=== PATIENT | male | born 1935 | race Caucasian/White ===

== ENCOUNTER → 2019-05-18 | Outpatient (CLI) | payer OTHER ==
--- NOTE | 2019-05-18 15:13 | MR ---
EXAMINATION TYPE: MR shoulder RT wo con DATE OF EXAM: 05/18/2019 COMPARISON: None HISTORY: Pain in right shoulder TECHNIQUE: Multiplanar, multisequence imaging of the right shoulder is performed without contrast. Jerrod roman had excessive pain could only complete 4 sequences including localization. Exam is limited. FINDINGS: Rotator Cuff: There is complete rotator cuff tear with retraction of the supraspinatus to under the m id acromion. There is some mild elevation of the humeral head in relation to the glenoid. Acromioclavicular Joint: Mild hypertrophy is present. Glenohumeral Joint: Humerus articulates with the glenoid. There is slight superior subluxation. Labrum: The labrum appears grossly intact given limitation of non-arthrogram study. Biceps Tendon: The long head of biceps is in normal location within bicipital groove. Fluid surrounds the long head of the biceps tendon compatible moderate tendinosis. Bone marrow signal: No focal abnormal marrow signal is appreciated. Other: Moderate joint effusion is present. IMPRESSION: 1. Complete tear right supraspinatus tendon with retraction of the tendons of the mid acromion. Moder ate joint effusion is evident. No muscle atrophy is evident. 2. Moderate tendinosis long head biceps tendon.
== END | disposition home or self-care (01) ==
LOC: RADMRIMAIN 12:49
PROVIDERS: ATTEND Orthopaedic Surgery
DX: M75.121 Complete rotator cuff tear or rupture of right shoulder, not specified as traumatic (principal); M67.813 Other specified disorders of tendon, right shoulder; M25.411 Effusion, right shoulder

== ENCOUNTER 2019-06-28 05:38 | Day surgery (SDC) | payer OTHER ==
[2019-06-26 11:03] VITALS: BMI 35.9
--- NOTE | 2019-06-27 14:59 | HP ---
HISTORY AND PHYSICAL DATE OF SERVICE: 06/28/2019 Trevon Blum is an 84-year-old patient seen with progressive right shoulder pain. We discussed options. He elected to proceed with arthroscopy. Consent was obtained. Medical clearance was provided. PAST MEDICAL HISTORY: Noncontributory. PAST SURGICAL HISTORY: Carpal tunnel surgery, right total knee arthroplasty. DAILY MEDICATIONS: Vitamins. ALLERGIES: None. SOCIAL HISTORY: Denies tobacco use. PHYSICAL EVALUATION RIGHT SHOULDER: Flexion 130 degrees, abduction is 90 degrees, external rotation is 50 degrees with weakness, tenderness along the anterolateral acromion rotator cuff insertion site. Impingement positive at 90. Drop-arm sign is positive. Distal neurovascular exam is intact. RADIOGRAPHS OF THE RIGHT SHOULDER: Reveal type 2 anterior acromion, acromioclavicular joint osteoarthritis. Right shoulder MRI revealed retracted rotator cuff tendon tear. IMPRESSION: Right shoulder impingement with rotator cuff tear. PLAN: Right shoulder arthroscopy with subacromial decompression, probable arthroscopic rotator cuff repair, possible Cecilia procedure and debridement. MMODL / IJN: [id number] /
[2019-06-28] MEDS ORDERED: ONDANSETRON 4 MG/2 ML VIAL IVP ONE (05:55)
[2019-06-28] MEDS ORDERED: LACTATED RINGERS 1,000 ML IV SCH (05:55)
[2019-06-28] MEDS ORDERED: HYDROmorphone 0.5 MG/0.5 ML SYRINGE IVP PRN (05:55)
[2019-06-28] MEDS ORDERED: LIDOCAINE 1% 20 ML VIAL (10MG/ML) FOR IV START INTRADERMA PRN (05:55)
[2019-06-28] MEDS ORDERED: MIDAZOLAM (PF) 2 MG/2 ML VIAL IV ONE (06:40)
[2019-06-28] MEDS ORDERED: fentaNYL (PF) 50 MCG/ML 2 ML AMP IV ONE (06:40)
[2019-06-28] MEDS ORDERED: PROPOFOL 10 MG/ML 20 ML VIAL IV ONE (06:52)
[2019-06-28] MEDS ORDERED: MIDAZOLAM 2 MG/2 ML VIAL ONE (06:52)
[2019-06-28] MEDS ORDERED: PHENYLEPHRINE-0.9% NACL SYG 1 MG/10 ML SYRINGE ONE (06:52)
[2019-06-28] MEDS ORDERED: LIDOCAINE 1% INJ 10MG/ML (20 ML MDV) ONE (06:52)
[2019-06-28] MEDS ORDERED: SUCCINYLCHOLINE CHLORIDE 100 MG/5 ML SYR IV ONE (06:52)
[2019-06-28] MEDS ORDERED: ROPIVACAINE 5 MG/ML 30 ML VIAL ONE (06:52)
[2019-06-28] MEDS ORDERED: fentaNYL (PF) 50 MCG/ML 2 ML AMP ONE (06:52)
[2019-06-28] MEDS ORDERED: LACTATED RINGERS 1,000 ML IV ONE (08:42)
--- NOTE | 2019-06-28 08:52 | P.ANPRN ---
Procedure Note - Anesthesia - Nerve Block Performed Right Interscalene Single Time Out Performed: Yes Date of Procedure: 06/28/19 Procedure Start Time: 06:37 Procedure Stop Time: 06:46 Location of Patient Procedure: PreOp Indication: Acute Post-Operative Pain Specifically requested for management of pain by DrAlexander: Talon Morgan Sedation Type: Sedate with meaningful contact maintained Preparation: Sterile Prep Position: Supine Catheter: None Needle Types: Pajunk Needle Gauge: 21 Ultrasound used to visualize needle placement: Yes Ultrasound used to observe medication spread: Yes Injectate: 0.5% Ropivacaine (see comment for volume) (20 cc) Blood Aspirated: No Pain Paresthesia on Injection Noted: No Resistance on Injection: Normal Image Stored and Saved: Yes Events: Uneventful and Well Tolerated
[2019-06-28 09:26] VITALS: TEMP 97.5
--- NOTE | 2019-06-28 09:30 | P.OP ---
Date of Procedure: 06/28/19 Preoperative Diagnosis: Right shoulder impingement Postoperative Diagnosis: 1. Right shoulder massive retracted rotator cuff tear 2. Right shoulder impingement 3. Right shoulder acromioclavicular joint osteoarthritis 4. Right shoulder partial long head biceps tendon tear 5. Right shoulder superficial labral tear Procedure(s) Performed: 1. Right shoulder arthroscopic rotator cuff repair 2. Right shoulder arthroscopic subacromial decompression 3. Right shoulder arthroscopic Cecilia procedure 4. Right shoulder arthroscopic biceps tenotomy 5. Right shoulder arthroscopic debridement labral tear Implants: 5Arthrex swivel lock anchors Anesthesia: GETA, regional (Interscalene block) Surgeon: Talon Morgan Upscale Security Officer #1: Brando Rgigs Estimated Blood Loss (ml): 10 Pathology: none sent Condition: stable Disposition: PACU Indications for Procedure: 84-year-old patient seen with right shoulder pain. We discussed options, he elected to proceed with arthroscopy. Operative Findings: See description of procedure Description of Procedure: Patient underwent an interscalene block by department of anesthesia for postoperative pain management. The patient was then taken to the operative suite. The patient underwent a general anesthetic by the department of anesthesia. The patient was placed into a lateral position and secured. There was appropriate padding of the bony prominence. Right shoulder was then prepped and draped in normal sterile orthopedic fashion. We placed the extremity in 10 pounds of longitudinal traction. A posterior incision was now made for a posterior working portal site. The trocar and cannula were inserted into the glenohumeral joint. Arthroscopy was initiated. Spinal needle was now inserted anteriorly, to ascertain the anterior working portal site. An incision was now made in that area, a trocar was inserted followed by a probe. There was superficial tearing of the superior labrum. There was significant partial tearing long head biceps tendon. There was a well-visualized massive rotator cuff tear. I performed an arthroscopic biceps tenotomy. I debrided that superficial labral tear down to stable labral tissue. The residual labrum was found to be stable. Instruments removed from glenohumeral joint. Utilizing the posterior working portal site, the trocar and cannula were inserted into the subacromial space. Arthroscopy initiated. I made an incision 2 fingerbreadths lateral to the acromion. I introduced my trocar followed by my ArthroCare ablator. I now began ablating thick subacromial bursal tissue, which exposed the undersurface of the anterior acromion. There was diminished subacromial space. There was a very prominent anterior acromion. A motorized bur was introduced and a subacromial decompression was performed. I also excised some osteophytes off the inferior aspect of the distal clavicle. The AC joint was visualized and noted to be fairly arthritic. The motorized bur was introduced in the anterior portal site and a Cecilia procedure was performed without difficulty, decompressing the AC joint nicely. I turned my attention to the rotator cuff. There was a massive retracted rotator cuff tear. There was intrasubstance component to this as well. I cannot pull the tendon over the footprint. I performed a significant release. I now repaired the intrasubstance tear with 5 sutures performing a [id number] repair. I now just could barely get the tendon over the footprint. I abraded the footprint with a motorized bur.. I debrided the margins getting down to stable tendon tissue. I introduced my motorized bur and abraded the footprint area, getting some petechial bleeding. I now made an accessory portal site off the lateral aspect of the acromion. I punched 2 holes medial for medial row fixation with the assistance of Andrez FRANCIS carefully tapping the punch with a mallet as I held the punch and the camera. I now introduced both anchors into the pre-punched holes and Andrez FRANCIS tapped them with the mallet as I held anchors and the camera. Andrez FRANCIS now screwed the anchors in place a while I held the anchor guide and camera. All 8 limbs of suture were now passed through good bites of rotator cuff tendon. I passed and everted mattress suture centrally. I brought the central tendon down to the footprint repair. It was one single swivel lock anchor. I now punched 2 holes for lateral row fixation again I held the punch and camera while Andrez FRANCIS used a mallet to tap in the punch. We now passed sutures through both anchors and individually I introduced the anchors into the pre-punch holes I held the anchor guide in position with one hand holding the camera with the other hand while Andrez FRANCIS tensioned the sutures and screwed in the anchors one at a time. All residual suture limbs were now clipped. We had good compression of the tendon along the entire footprint. Instruments now removed from the portal sites. All portal sites were approximated with nylon suture. Sterile dressings were applied followed by a shoulder immobilizer. Andrez FRANCIS assisted in this complex case. The patient was awakened, transferred to a bed, and taken to recovery in stable condition.
[2019-06-28 09:48] VITALS: RESP 18
[2019-06-28 11:52] VITALS: BP 123/71; PULSE 76
== END 2019-06-28 12:25 | disposition home or self-care (01) ==
LOC: OR 05:38
PROVIDERS: ATTEND Orthopaedic Surgery
DX: M75.101 Unspecified rotator cuff tear or rupture of right shoulder, not specified as traumatic (principal); M75.41 Impingement syndrome of right shoulder; M19.011 Primary osteoarthritis, right shoulder; S46.111A Strain of muscle, fascia and tendon of long head of biceps, right arm, initial encounter; S43.431A Superior glenoid labrum lesion of right shoulder, initial encounter; X58.XXXA Exposure to other specified factors, initial encounter; M25.711 Osteophyte, right shoulder; Z96.651 Presence of right artificial knee joint; K21.9 Gastro-esophageal reflux disease without esophagitis; Z97.2 Presence of dental prosthetic device (complete) (partial); Z79.1 Long term (current) use of non-steroidal anti-inflammatories (NSAID); Z79.899 Other long term (current) drug therapy
CPT/HCPCS: 64415; 76942; 29826; 29827; 29824; C1713 ×3; C1765; J2250 ×2; J0690; J2405; J2001; J3010; J2795; J2370; J0330; J2704

== ENCOUNTER → 2023-03-16 | Outpatient (CLI) | payer MEDICARE, OTHER ==
[2023-03-16 12:10] VITALS: BP 131/70; PULSE 67; RESP 18
--- NOTE | 2023-03-16 13:31 | P.PAINPG ---
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 Pt states pain level is provoked at 10 /10 in intensity, constant, localized in the L lower lumbar spine, sharp in character w shooting pain towards the L groin. Pain is provoked by over activity, or standing from a sitting position. Pain is alleviated by PT w massage x 1 1/2 wks which he is currently in, massage therapist weekly for 2-3 yrs, heat, ice, medications (Tyl Arthritis), use of a cane for ambulatory assistance, reclining, repositioning and rest. PMH: OA, HTN PSH: R RCT Repair (2019), BL Carpal Tunnel Release, BL Total Knee Replacement SH: Never smoker, Occasional ETOH use, No illicit drug use FH: Mo- . Fa- . All: See list Meds: See list REVIEW OF ORGAN SYSTEMS: CONSTITUTIONAL: No fevers or chills. No recent weight loss. NEUROLOGICAL: + numbness and tingling along the distal extremities. No seizure disorders or headaches. MUSCULOSKELETAL: + pain PSYCHIATRIC: Denies current depression or suicidal thoughts. Physical Examinations : Constitutional : Cooperative , not in acute distress . Neurologic : Cranial nerve II to XII intact. No focal neurological deficits. Psychiatric : alert & oriented x 3. Matching mood & appropriate affect. Judgment & insight intact. Musculoskeletal : Cervical Spine Motor strength in the deltoid and biceps: Normal right side. Normal Left side Motor strength biceps and the wrist extensors: Normal right side . Normal left side Motor strength in the triceps muscle: Normal right side. Normal left side Deep tendon reflexes: Normal at the biceps. Normal at Brachioradialis. Normal at triceps Vertebral body tenderness to deep palpation over Cervical facet loading test: positive bilaterally Spurling test: positive bilaterally Neck distraction test: positive bilaterally Twyla sign: positive bilaterally Lumbar spine Motor strength lower extremities ,thigh and legs 5/5 Right side , 5/5 Left side Deep tendon reflexes : Normal Knee Jerk. Normal Ankle Jerk Vertebral body tenderness over Hanna Test positive Lumbar facet Loading Test: positive Right / positive Left Range of motion of the lumbar spine Flexion 30 degrees, extension 10 degrees Straight Leg Raise test: Left/ Right positive at degree Purvi test: positive right / positive left. Severe tenderness over the Sacroiliac joint on the Right / Left sides Gaenslen test: positive bilaterally Seated flexion test: positive bilaterally. Sacral spine : Severe tenderness over the Sacroiliac joint: right side / left side Range of motion: Flexion of the lumbar spine <60 degrees Range of motion: Extension of the lumbar spine <20 degrees Gaenslen's Test positive on L Purvi test: positive right side / left side Thigh Thrust Test positive on L Sacral Thrust Test Imaging: MRI non contrast of the lumbar spine from 03/07/23 reviewed Assessment/ Plan : Lumbar spondylosis Recommendation of L SI injection. May need a series of injections for optimal pain relief. Risks, benefits of procedure discussed and patient verbalized understanding. Admits to aspirin or anti- coagulant use or medical history of diabetes. Protocol for discontinuation/ continuation of medications zhao procedure discussed. Minimal anesthesia provided, if clinically indicated, consisting of Versed and Fentanyl. All questions answered. I have spent greater than 30 minutes on patient care today. Dr Araiza was available by phone for the evaluation of this patient. The time was used to review the medical records including relevant urine studies and Prescription history (MAPs), review of the available imaging, evaluation and examination of the patient, coordination of care with the medical staff and if applicable referring physicians, as well as creation of the medical record PQRS Narrative: Smoking Status Never smoker Home Medications: Ambulatory Orders Naproxen Sodium [Aleve] 220 mg PO BID PRN 06/26/19 Omeprazole [PriLOSEC] 20 mg PO [id number]-[id number] PRN 06/26/19 Hydrocodone/Acetaminophen [[place] 5-325] 1 each PO Q6HR PRN #28 tab 06/28/19 Controlled Substance Measures - Controlled Substance Measures Is patient prescribed a controlled substance at discharge?: No
== END ==
LOC: PNWHC3 10:38
PROVIDERS: ATTEND Specialist
DX: M51.36 Other intervertebral disc degeneration, lumbar region (principal); M47.816 Spondylosis without myelopathy or radiculopathy, lumbar region; M19.90 Unspecified osteoarthritis, unspecified site; I10 Essential (primary) hypertension
CPT/HCPCS: 99211

== ENCOUNTER 2023-03-31 12:13 | Day surgery (SDC) | payer MEDICARE, OTHER ==
[2023-03-24 14:26] VITALS: BMI 35.2
[~2023-03-31 12:13] MED LIST: LACTATED RINGERS 1,000 ML IV SCH
[2023-03-31 12:52] VITALS: TEMP 97.8
[2023-03-31] MEDS ORDERED: IOPAMIDOL M200 10 ML VIAL ONE (13:36)
[2023-03-31] MEDS ORDERED: TRIAMCINOLONE ACETONIDE 40 MG/ML 1 ML VIAL ONE (13:36)
--- NOTE | 2023-03-31 13:45 | P.PCN ---
Date of Procedure: 03/31/23 Description of Procedure: PREOPERATIVE DIAGNOSIS: Sacroiliac joint dysfunction POSTOPERATIVE DIAGNOSIS: Sacroiliac joint dysfunction. PROCEDURES: 1. Left-sided Sacroiliac joint steroid injection #1 out of 2 2. Sacroiliac joint arthrogram. SURGEON: Talisha Dong ANESTHESIA: Local and IV sedation : None EBL: None. Specimen removed: None Fluoroscopic image: saved to electronic medical records. PROCEDURE INDICATIONS: This patient with a history of chronic low back pain, and sacroiliac joint dysfunction. Patient tried conservative therapy. Came here for intervention management. PROCEDURE DESCRIPTION: The patient was seen and identified in the preoperative area. Risks, benefits, complications, and alternatives were discussed with the patient. The patient agreed to proceed with the procedure and signed the consent. and vital signs were stable. Patient was taken to the OR and time out was completed. The patient was placed in the prone position on procedure table and a pillow was placed under the abdomen to reduce lumbar lordosis. The lumbosacral area was prepped and draped in the usual sterile fashion. Critical pause was taken. Vital signs were closely monitored during the procedure. For the left side, the fluoroscopic camera was placed in right oblique view and left side SI joint lower pole was identified. Skin entry point was infiltrated with 1% lidocaine and 22-gauge 3.5 inch spinal needle was introduced into the inferior one-third of SI joint and after penetrating into the joint arthrogram was done. 0.5 ml of Isovue 200 contrast was injected after negative aspiration for blood, and air and negative for paresthesia. Good spread of the contrast into the SI joint has been seen. Then again after negative aspiration of spinal fluid and blood and negative for neurological symptoms, 3 mL of a solution containing total 2 mL of 1% preservative-free lidocaine mixed with 40 mg of Kenalog was injected. Needle was withdrawn intact. Skin was cleansed, and bandages were applied. COMPLICATIONS: None. DISPOSITION / PLANS: The patient was placed in a supine position and transferred to the recovery area in a stable condition for observation and was discharged from the recovery room after meeting discharge criteria. Home discharge instructions given to the patient by the staff. The patient was reexamined prior to discharge. The patient will schedule for follow-up visit with the pain clinic in 4 weeks duration.
[2023-03-31 13:51] VITALS: PULSE 78; RESP 18
--- NOTE | 2023-03-31 13:54 | FL ---
EXAMINATION TYPE: FL guided pain mgmt statistic DATE OF EXAM: 03/31/2023 HISTORY: Fluoroscopy time Total dose area product (DAP) in uGy*m?, mGy*cm? (or similar): 0.08460 IMPRESSION: 1. Fluoroscopy time.
[2023-03-31 14:10] VITALS: BP 134/67
== END 2023-03-31 14:25 | disposition home or self-care (01) ==
LOC: ORPAIN 12:13
DX: M53.3 Sacrococcygeal disorders, not elsewhere classified (principal); G89.29 Other chronic pain
CPT/HCPCS: J3301; Q9966; G0260; 27096

== ENCOUNTER → 2023-04-25 | Outpatient (CLI) | payer MEDICARE, OTHER ==
[2023-04-25 12:05] VITALS: BP 150/61; PULSE 57; RESP 14; TEMP 98.1
--- NOTE | 2023-04-25 14:34 | P.PAINPG ---
PQRS Measure Charge Sheet Comment: 87 yr old male w at side presents today w severe and chronic LBP secondary to DDD, spondylosis and facet arthropathy without myelopathy, L Sacroiliitis for evaluation s/p L SI injection. Pt states he experienced 100% pain relief x 3 wks s/p procedure. Pt states pain level is provoked at 0 /10 in intensity. Pain is alleviated by injections, PT w massage x 1 1/2 wks which he is currently in, massage therapist weekly for 2-3 yrs, heat, ice, medications (Tyl Arthritis), use of a cane for ambulatory assistance, reclining, repositioning and rest. Interventional procedures include L SI x 1 Medications include Tyl Arthritis REVIEW OF ORGAN SYSTEMS: CONSTITUTIONAL: No fevers or chills. No recent weight loss. NEUROLOGICAL: + numbness and tingling along the distal extremities. No seizure disorders or headaches. MUSCULOSKELETAL: + pain PSYCHIATRIC: Denies current depression or suicidal thoughts. Physical Examinations : Constitutional : Cooperative , not in acute distress . Neurologic : Cranial nerve II to XII intact. No focal neurological deficits. Psychiatric : alert & oriented x 3. Matching mood & appropriate affect. Judgment & insight intact. Musculoskeletal : Cervical Spine Motor strength in the deltoid and biceps: Normal right side. Normal Left side Motor strength biceps and the wrist extensors: Normal right side . Normal left side Motor strength in the triceps muscle: Normal right side. Normal left side Deep tendon reflexes: Normal at the biceps. Normal at Brachioradialis. Normal at triceps Vertebral body tenderness to deep palpation over Cervical facet loading test: positive bilaterally Spurling test: positive bilaterally Neck distraction test: positive bilaterally Twyla sign: positive bilaterally Lumbar spine Motor strength lower extremities ,thigh and legs 5/5 Right side , 5/5 Left side Deep tendon reflexes : Normal Knee Jerk. Normal Ankle Jerk Vertebral body tenderness over Hanna Test positive Lumbar facet Loading Test: positive Right / positive Left Range of motion of the lumbar spine Flexion 30 degrees, extension 10 degrees Straight Leg Raise test: Left/ Right positive at degree Purvi test: positive right / positive left. Severe tenderness over the Sacroiliac joint on the Right / Left sides Gaenslen test: positive bilaterally Seated flexion test: positive bilaterally. Sacral spine : Severe tenderness over the Sacroiliac joint: right side / left side Range of motion: Flexion of the lumbar spine <60 degrees Range of motion: Extension of the lumbar spine <20 degrees Gaenslen's Test positive on L Purvi test: positive right side / left side Thigh Thrust Test positive on L Sacral Thrust Test Imaging: MRI non contrast of the lumbar spine from 03/07/23 reviewed Assessment/ Plan : Lumbar spondylosis, L Sacroiliitis Pt will manage any mild or moderate pain on his own and may return to clinic on an as needed basis. All questions answered. I have spent greater than 30 minutes on patient care today. Dr Araiza was available by phone for the evaluation of this patient. The time was used to review the medical records including relevant urine studies and Prescription history (MAPs), review of the available imaging, evaluation and examination of the patient, coordination of care with the medical staff and if applicable referring physicians, as well as creation of the medical record PQRS Narrative: Smoking Status Never smoker Hx Alcohol Use (MH) Yes Home Medications: Ambulatory Orders Acetaminophen [Tylenol Arthritis] 650 mg PO DIRECTED PRN 03/24/23 Aspirin 81 mg PO DAILY 03/24/23 Pantoprazole [Protonix] 40 mg PO DAILY 03/24/23 Turmeric Root Extract [Turmeric] 500 mg PO DAILY 03/24/23 [id number] HCL [Cartia Xt] 120 mg PO DAILY 03/24/23 Controlled Substance Measures - Controlled Substance Measures Is patient prescribed a controlled substance at discharge?: No
== END ==
LOC: PNWHC3 10:54
PROVIDERS: ATTEND Specialist
DX: M47.816 Spondylosis without myelopathy or radiculopathy, lumbar region (principal); M46.1 Sacroiliitis, not elsewhere classified; Z79.82 Long term (current) use of aspirin
CPT/HCPCS: 99211